=== PATIENT | female | born 1995 | race African-American/Black ===

== ENCOUNTER 2016-11-12 06:27 | Inpatient (IN) ==
[2016-11-12] MEDS ORDERED: MEPERIDINE 50 MG/1 ML VIAL IV PRN (06:52)
[2016-11-12] MEDS ORDERED: ONDANSETRON 4 MG/2 ML VIAL IV PRN (06:52)
[2016-11-12] MEDS ORDERED: OXYTOCIN/LR 20 UNIT/1,000 ML BAG IV SCH (07:00)
[2016-11-12 07:05] LABS: Basophils % 0.4 % (0.0-0.8); Eosinophils # 0.1 10*3/uL (0.0-0.87); Eosinophils % 1.8 % (0.00-10.9); Hematocrit 29.1 VOL% (35.7-47.0); Hemoglobin 9.8 GM/DL (12.0-16.0); Immature Granulocytes % 0.8 %; Immature Granulocytes Absolute 0.06 #; Lymphocytes # 1.5 10*3/uL (1.4-4.0); Lymphocytes % 21.4 % (21.3-54.2); Mean Corpuscular HGB Conc 33.7 GM/DL (32-36); Mean Corpuscular Hemoglobin 29 PG (27-34); Mean Corpuscular Volume 84.6 FL (87-102); Mean Platelet Volume 11.3 FL (9.6-12.0); Monocytes # 0.8 10*3/uL (0.11-0.8); Monocytes % 10.8 % (1.7-12.7); Neutrophils # 4.6 10*3/uL (1.4-7.4); Neutrophils % 64.8 % (38.7-73.9); Platelet Count 140 T/CUMM (130-400); Red Blood Count 3.44 MC/CUMM (3.8-5.5); Red Cell Distribution Width 13.7 % (9.3-17.3); White Blood Count 7.1 T/CUMM (4-12)
[2016-11-12] MEDS: LACTATED RINGERS 1,000 ML IV SCH ×2 (07:25→14:59)
[2016-11-12] MEDS ORDERED: ONDANSETRON 4 MG/2 ML VIAL IV ONE (08:34)
[2016-11-12] MEDS ORDERED: diphenhydrAMINE 50 MG/1 ML VIAL IV PRN ×2 (08:34)
[2016-11-12] MEDS ORDERED: fentaNYL 2 MCG/ROPIV 0.2% EPID 150 ML EPIDURAL SCH (08:34)
[2016-11-12] MEDS ORDERED: ePHEDrine 50 MG/ML AMP IV PRN (08:34)
[2016-11-12] MEDS ORDERED: FAMOTIDINE 20 MG/2 ML VIAL IV ONE (08:34)
[2016-11-12] MEDS ORDERED: PROMETHAZINE 25 MG/1 ML VIAL IM ONE (08:34)
[2016-11-12] MEDS ORDERED: hydrOXYzine HCL 25 MG/1 ML VIAL IM PRN (08:34)
[2016-11-12] MEDS ORDERED: LACTATED RINGERS 1,000 ML IV ONE (08:34)
[2016-11-12] MEDS ORDERED: CITRIC ACID/SODIUM CITRATE 30 ML UDCUP PO ONE (08:34)
[2016-11-12 12:25] LABS: Apearance,Urine CLEAR (Clear); Bilirubin,Urine Negative (Negative); Blood, Urine Negative (Negative); Glucose,Urine (UA) Negative (Negative); Ketones,Urine 5 mg/dL (Negative); Mucus,Urine Many /LPF (Occasional); Nitrite,Urine Negative (Negative); Protein,Urine Negative; RBC,Urine 2 /HPF (0-4); Squamous Epithelial Cell,Urine Occasional /HPF (0-10); Urine Color Yellow (Yellow); Urine Specific Gravity 1.016 (1.001-1.035); WBC,Urine 2 /HPF (0-6)
--- NOTE | 2016-11-12 15:25 | OB/GYN History & Physical ---
History of Present Illness Chief complaint: In for elective induction of labor due to term . History of present illness: Ms. Calix is a 21 year old female primigravida who presents to the labor department for elective induction of labor due to term . Her YUNIEL is for an estimated gestational age of 39 weeks. The patient presents for elective induction of labor due to term . The risk and benefits been thoroughly discussed with this patient and significant other, plan of care has been discussed with Dr. Benson and all parties are in agreement with plan. The patient received her care through the [facility] and she received routine care, her course was uneventful. labs: She is O+, antibody screen negative, RPR nonreactive, hepatitis B negative, HIV negative, rubella is immune, and GBS culture is negative. Review of systems is negative with exception of above. Home Medications Medication Instructions Recorded Confirmed Type No Known Home Medications [No 09/19/16 11/12/16 History Known Home Medications] Allergies Allergy/AdvReac Type Severity Reaction Status Date / Time No Known Allergies Allergy Verified 09/19/16 21:18 12 point system: reviewed and no additional remarkable complaints except as stated Medical,Surgical,& Family Hx - Medical History Medical History: noncontributory Reproductive: No history of: Ectopic , Complication - Surgical History Reproductive Surgeries: Patient denies;: Section Additional Surgical History: Keloid removal - Family History Family History: Reports;: Family Diabetes (MGF), Family Hypertension (MOM) Denies;: Family Anesthesia Reaction, Family Cancer, Family Heart Disease, Family Hematology, Family Psychiatric Problems, Family Stroke, Additional Family History - Social History Smoking Status: Never smoker Frequency of Alcohol Use: None Type of Drug Use: None Marital Status: Single Lives With:: Significant Other Functional capacity: independent ambulation 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 - Constitutional Vitals: Vital Signs Temp Pulse Resp BP Pulse Ox 11/12/16 13:14 97.3 F L 11/12/16 11:19 97.9 F 11/12/16 08:00 97.6 F 11/12/16 06:51 97.8 F 89 20 123/77 100 General appearance: no acute distress - Antepartum / Post Antepartum Exam Cervix - Dilatation: 4 cm Effacement: 70% Station: -2 Rupture: Intact Presentation: Vertex Heart Rate: 140s Breast: bilateral: normal Abdomen obstetrics: Present: bowel sounds normal Vagina: Present: normal moisture Uterus exam: Present: enlarged - Respiratory Respiratory exam: Present: clear to auscultation bilaterally - Cardiovascular Cardiovascular exam: Present: regular rate and rhythm - GI/Abdominal GI/Abdominal exam: Present: normal bowel sounds, soft - Extremities Exam Extremities exam: Present: normal inspection - Back Exam Back exam: Present: normal inspection - Neurological Exam Neurological exam: Present: alert, oriented X3 - Psychiatric Psychiatric exam: Present: normal affect, normal mood - Skin Skin exam: Present: normal color, warm Assessment and Plan (1) Term Status: Acute Assessment and plan: Admit IV fluids IV Pitocin per protocol Artificial rupture membranes when appropriate Epidural anesthesia if desired Internal monitors if indicated Anticipate Current Visit: Yes Results - Labs CBC & BMP: 11/12/16 06:57
--- NOTE | 2016-11-12 16:41 | Event Note ---
HPI: Ms. Calix is a 21-year-old primigravida who presented to the labor department for elective induction of labor due to term . The risk and benefits were thoroughly discussed with the patient and significant other, and plan of care was discussed with Dr. Benson all parties were in agreement plan. Stage I: The patient was admitted she received IV fluids and IV Pitocin per protocol. Artificial rupture membranes was performed with clear fluid noted. The patient received an epidural when she was 5 cm dilated. She progressed in labor with a CAT 1 tracing. The patient had an uneventful course of labor. Stage II: The patient was complete and instructed to push. She pushed for approximately 35 minutes after which time a second-degree midline episiotomy was performed. The patient pushed approximately 5 more minutes after which time the infant's head was delivered. The mouth and nose were suctioned on the perineum, the remainder the was delivered at 1618 a viable female infant was noted. Apgars were 9 at 1 minute and 9 at 5 minutes. weight was 7 pounds and 8 ounces. A cord pH was obtained and sent to the lab. The was then placed on the mom's abdomen for skin to skin bonding. Stage III: A spontaneous delivery of a Funez placenta with a three-vessel cord noted. The placenta was further examined. Grossly intact. Vagina cervix inspected with no tears or lacerations noted. The episiotomy was repaired in the usual fashion, epidural anesthesia remain in effect on repair. Estimated blood loss was approximately 150 cc. At the time of dictation mother and baby are both in stable condition.
[2016-11-12] MEDS ORDERED: ACETAMINOPHEN/CODEINE 300-30 MG TABLET PO PRN (16:42)
[2016-11-12] MEDS ORDERED: OXYTOCIN/LR 20 UNIT/1,000 ML BAG IV ONE (18:52)
--- NOTE | 2016-11-12 19:36 | Anesthesia Post-Op ---
Anesthesia Post OP - Post Ansesthetic Evaluation Patient seen in post op: Yes Resp: within normal limits CV: within normal limits Mental: within normal limits Temp: within normal limits [id number]: within normal limits Nausea and Vomiting: within normal limits Pain: within normal limits
[2016-11-12 20:20] LABS: Hematocrit 25.1 VOL% (35.7-47.0); Hemoglobin 8.4 GM/DL (12.0-16.0)
[2016-11-12] MEDS ORDERED: SODIUM CHLORIDE 0.9% 250 ML IV PRN (20:31)
[2016-11-12] MEDS ORDERED: LANOLIN 50% CREAM 0.3 OZ TUBE TOP PRN (20:42)
[2016-11-12] MEDS ORDERED: HYDROCORTISONE 2.5% RECTAL CREAM 30 GM TUBE TOP PRN (20:42)
[2016-11-12] MEDS ORDERED: ACETAMINOPHEN 325 MG TABLET PO PRN (20:42)
[2016-11-12] MEDS ORDERED: BENZOCAINE 20%/MENTHOL 0.5% SPRAY 56 GM CAN TOP PRN (20:42)
[2016-11-12] MEDS ORDERED: BISACODYL 10 MG SUPP RECTAL PRN (20:42)
[2016-11-12] MEDS ORDERED: oxyCODONE/ACETAMINOPHEN 5-325 MG TABLET PO PRN (20:42)
[2016-11-12] MEDS ORDERED: RHO(D) IMMUNE GLOBULIN 300 MCG SYRINGE IM ONE (20:42)
[2016-11-12] MEDS ORDERED: DIPH/TET/ACEL PERT BOOSTER VACCINE 0.5 ML VIAL IM ONE (20:42)
[2016-11-12] MEDS ORDERED: WITCH HAZEL PADS 100/JAR TOP PRN (20:42)
[2016-11-12] MEDS ORDERED: MEASLES/MUMPS/RUBELLA VACCINE 0.5 ML VIAL SUBCUT ONE (20:42)
--- NOTE | 2016-11-12 20:49 | Progress Note ---
Family Medicine PN Sub Interval history: day #1 Status post vaginal Lungs are clear, cardiac exam benign Abdomen soft, uterus is nice and firm Extremities well with no limits neurologic grossly intact Status post vaginal Continue with present therapy possible discharge in [id number] Exam (Progress Note) - Constitutional Vitals: Period Temp Pulse Resp BP Sys/Gongora Pulse Ox Last 24 Hr 97.1 F-98 F 89-90 18-20 106-123/69-77 100 Results - Labs CBC & BMP: 11/12/16 20:16 Quality Measures - VTE Contraindication to Pharmacological VTE Prophylaxis: Clinical assessment deems Pt at low risk, no prophalaxis needed
[2016-11-12] MEDS: DOCUSATE SODIUM 100 MG CAPSULE PO SCH (21:05)
[2016-11-12] MEDS: IBUPROFEN 800 MG TABLET PO PRN (21:05)
[2016-11-13 06:59] LABS: Basophils % 0.2 % (0.0-0.8); Eosinophils % 0.3 % (0.00-10.9); Hematocrit 27.8 VOL% (35.7-47.0); Hemoglobin 9.4 GM/DL (12.0-16.0); Immature Granulocytes % 0.8 %; Immature Granulocytes Absolute 0.13 #; Lymphocytes # 1.9 10*3/uL (1.4-4.0); Lymphocytes % 12.7 % (21.3-54.2); Mean Corpuscular HGB Conc 33.8 GM/DL (32-36); Mean Corpuscular Hemoglobin 28 PG (27-34); Mean Corpuscular Volume 81.3 FL (87-102); Mean Platelet Volume 12.4 FL (9.6-12.0); Monocytes # 1.9 10*3/uL (0.11-0.8); Monocytes % 12.2 % (1.7-12.7); NRBC # 0.02 10*3/uL; Neutrophils # 11.3 10*3/uL (1.4-7.4); Neutrophils % 73.8 % (38.7-73.9); Platelet Count 124 T/CUMM (130-400); Red Blood Count 3.42 MC/CUMM (3.8-5.5); Red Cell Distribution Width 14.9 % (9.3-17.3); White Blood Count 15.3 T/CUMM (4-12)
[2016-11-13 07:22] LABS: Band Neutrophils 1 % (0-10); Hypochromasia Slight; Lymphocytes 12 % (20-55); Ovalocytes Slight; Platelet Estimate Normal; Segmented Neutrophils 80 % (50-85); Total Cells Counted 100
[2016-11-13] MEDS: DOCUSATE SODIUM 100 MG CAPSULE PO SCH ×2 (08:27→21:01)
[2016-11-13] MEDS: FERROUS SULFATE 325 MG TABLET PO SCH ×2 (08:27→21:01)
--- NOTE | 2016-11-13 09:15 | OB/GYN Progress Note ---
Assessment and Plan (1) Term Status: Acute Assessment and plan: Admit IV fluids IV Pitocin per protocol Artificial rupture membranes when appropriate Epidural anesthesia if desired Internal monitors if indicated Anticipate Current Visit: Yes (2) Vaginal delivery Status: Acute Assessment and plan: Initiate routine orders. 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 Bonding well with . Exam LEAD CASTER - Constitutional Vitals: Vital Signs Temp Pulse Pulse Resp BP BP Pulse Ox 11/13/16 07:18 99.4 F 74 18 117/70 100 11/13/16 04:15 97.6 F 95 H 17 114/67 11/13/16 04:00 97.6 F 95 H 17 114/67 97 11/13/16 02:30 97.8 F 93 H 18 117/76 11/13/16 01:30 97.9 F 84 18 121/64 11/13/16 01:00 98.1 F 88 18 128/70 11/13/16 00:55 98.1 F 88 18 127/76 11/13/16 00:50 98.3 F 93 H 18 122/72 11/13/16 00:45 98.3 F 88 18 123/74 11/12/16 23:57 98.6 F 83 18 117/71 98 11/12/16 22:35 98.9 F 88 18 123/71 11/12/16 22:05 98.9 F 96 H 18 118/68 11/12/16 22:00 99.1 F 94 H 18 122/70 11/12/16 21:55 99.1 F 93 H 19 125/65 11/12/16 21:50 99.3 F 96 H 18 122/72 11/12/16 20:00 98 F 90 18 106/69 11/12/16 15:25 97.1 F L 11/12/16 13:14 97.3 F L 11/12/16 11:19 97.9 F General appearance: no acute distress - Antepartum / Post Antepartum Exam Breast: bilateral: normal Abdomen obstetrics: Present: bowel sounds normal Vagina: Present: normal moisture, discharge (Light lochia rubra) Uterus exam: Present: enlarged (Fundus firm and midline) Anus/Rectum: Present: normal perianal skin - Head Head exam: Present: normal inspection - Respiratory Respiratory exam: Present: clear to auscultation bilaterally - Cardiovascular Cardiovascular exam: Present: regular rate and rhythm - GI/Abdominal GI/Abdominal exam: Present: normal bowel sounds, soft - Extremities Exam Extremities exam: Present: normal inspection - Neurological Exam Neurological exam: Present: alert, oriented X3 - Psychiatric Psychiatric exam: Present: normal affect, normal mood - Skin Skin exam: Present: normal color, warm Results - Labs CBC & BMP: 11/13/16 06:26
[2016-11-13] MEDS: oxyCODONE/ACETAMINOPHEN 5-325 MG TABLET PO PRN (16:55)
[2016-11-13] MEDS: IBUPROFEN 800 MG TABLET PO PRN (16:55)
[2016-11-14 07:19] VITALS: BP 120/69
[2016-11-14] MEDS: DOCUSATE SODIUM 100 MG CAPSULE PO SCH (08:47)
[2016-11-14] MEDS: IBUPROFEN 800 MG TABLET PO PRN (08:47)
[2016-11-14] MEDS: FERROUS SULFATE 325 MG TABLET PO SCH (08:47)
[2016-11-14] MEDS: oxyCODONE/ACETAMINOPHEN 5-325 MG TABLET PO PRN (08:47)
--- NOTE | 2016-11-14 08:58 | Discharge Summary ---
Hospital Course - Hospital Course Hospital Course: Ms. Calix presented for elective induction of labor due to term . She subsequently delivered a viable with no complications. She has followed a normal post course and she has done well. Her bleeding is minimal with no odor. Her vital signs and lab values are stable. Her perineum is intact with no edema. She is voiding without difficulty. She did experience an episode of dizziness and shortness of breath immediately and received 2 units of packed RBCs. She has done well since. She is bonding well with her infant. And will be discharged to home with prescriptions for pain and follow-up appointment in our office. Diagnosis - Discharge Diagnosis (1) Term Status: Acute (2) Vaginal delivery Status: Acute Specialty Discharge - Follow Up or Referrals Follow up with: Kiko Benson MD [Primary Care Provider] - (Follow-up in 6 weeks) Discharge Plan - Discharge Data Disposition: Disch To Home/Self Care Condition at Discharge: Stable Discharge Diet: advance to your usual diet, regular diet Activity: resume usual activities as tolerated Hygiene: no restrictions Weight Bearing at Discharge: weight bear as tolerated Driving: no restrictions Contact your physician if you experience:: fever over 101, pain uncontrolled by pain medications - Discharge Medications New Acetamin/Codeine 300-30 Tab [Tylenol/Codeine #3] 2 tablet PO Q4H PRN #30 tablet PRN Reason: Pain Mild (1-3) Ferrous Sulfate Tab [Feosol Original Tab] 325 mg PO BID #60 tablet Ibuprofen Tab [Motrin Tab] 800 mg PO Q8H PRN #30 tablet PRN Reason: Pain Moderate (4-7) No Action No Known Home Medications [No Known Home Medications] - Follow Up or Referral Follow Up: Kiko Benson MD [Primary Care Provider] - - Forms/Instructions Instructions: Depression (GEN), Perineal Care (DC), Vaginal Delivery (DC), Bleeding (DC) Exam - Constitutional Vitals: Period Temp Pulse Resp BP Sys/Gongora Pulse Ox Last 24 Hr 97.8 F-98.3 F 72-96 17-20 110-128/62-77 98-100 General appearance: no acute distress - Head Head exam: Present: normal inspection - Respiratory Respiratory exam: Present: clear to auscultation bilaterally - Cardiovascular Cardiovascular exam: Present: regular rate and rhythm - GI/Abdominal GI/Abdominal exam: Present: normal bowel sounds, soft - Extremities Exam Extremities exam: Present: normal inspection - Neurological Exam Neurological exam: Present: alert, oriented X3 - Psychiatric Psychiatric exam: Present: normal affect, normal mood - Skin Skin exam: Present: normal color, warm DS: Provider Date of admission: 11/12/16 06:52 Primary care physician: Kiko Benson MD Attending physician on admission: Kiko Benson MD Consults: 11/12/16 06:52 Consult to Anesthesiology [CONS] Routine Consulting Provider: Reason for Anesthesiology: Epidural Consult Comment: Epidural for pain managment 11/12/16 20:42 Consult to Senior Corporate Accountant [CONS] Routine Consult Senior Corporate Accountant: Breast Feeding Discharging clinician: Kimmy Calix CNM
== END 2016-11-14 12:15 | disposition home or self-care (01) | DRG 560 ==
LOC: N.LDOUT 06:27 → N.LD 06:30 → N.OB 20:40
PROVIDERS: ADMIT Obstetrics & Gynecology; ATTEND Obstetrics & Gynecology

== ENCOUNTER 2018-03-29 23:58 | Inpatient (IN) ==
[2018-03-30] MEDS ORDERED: MEPERIDINE 50 MG/1 ML VIAL IV PRN (00:12)
[2018-03-30] MEDS ORDERED: ONDANSETRON 4 MG/2 ML VIAL IV PRN (00:12)
[2018-03-30 00:47] LABS: Basophils % 0.3 % (0.0-0.8); Eosinophils # 0.1 10*3/uL (0.0-0.87); Eosinophils % 1.3 % (0.00-10.9); Hematocrit 27.4 VOL% (35.7-47.0); Hemoglobin 8.8 GM/DL (12.0-16.0); Immature Granulocytes % 0.8 %; Immature Granulocytes Absolute 0.07 #; Lymphocytes # 2.1 10*3/uL (1.4-4.0); Lymphocytes % 22.8 % (21.3-54.2); Mean Corpuscular HGB Conc 32.1 GM/DL (32-36); Mean Corpuscular Hemoglobin 25 PG (27-34); Mean Corpuscular Volume 78.7 FL (87-102); Mean Platelet Volume 12.1 FL (9.6-12.0); Monocytes # 0.9 10*3/uL (0.11-0.8); Monocytes % 10.2 % (1.7-12.7); NRBC # 0.03 10*3/uL; Neutrophils # 5.8 10*3/uL (1.4-7.4); Neutrophils % 64.6 % (38.7-73.9); Platelet Count 159 T/CUMM (130-400); Red Blood Count 3.48 MC/CUMM (3.8-5.5); Red Cell Distribution Width 14.7 % (9.3-17.3)
[2018-03-30] MEDS: AMPICILLIN INJ 2,000 MG in SODIUM CHLORIDE 0.9% 100 ML IV SCH ×2 (01:00→07:26)
[2018-03-30 01:17] LABS: Albumin 2.9 G/DL (3.4-5.0); Bilirubin,Total 0.8 MG/DL (0.2-1.0); Calcium 8.8 MG/DL (8.5-10.1); Osmolality,Calculated 270.8 MOS/KG (273-304); Potassium 3.9 MMOL/L (3.5-5.1)
[2018-03-30] MEDS ORDERED: CITRIC ACID/SODIUM CITRATE 30 ML UDCUP PO ONE (04:29)
[2018-03-30] MEDS ORDERED: OXYTOCIN/LR 30 UNIT/1,000 ML BAG IV ONE (04:30)
[2018-03-30] MEDS ORDERED: FAMOTIDINE 20 MG/2 ML VIAL IV ONE (04:30)
[2018-03-30] MEDS ORDERED: fentaNYL 2 MCG/ROPIV 0.2% EPID 100 ML EPIDURAL SCH (04:30)
[2018-03-30] MEDS ORDERED: ePHEDrine 50 MG/ML AMP ONE (04:36)
[2018-03-30] MEDS: LACTATED RINGERS 1,000 ML IV SCH ×2 (04:40→05:37)
[2018-03-30] MEDS ORDERED: TERBUTALINE 1 MG/1 ML VIAL SUBCUT ONE (04:42)
[2018-03-30 06:02] LABS: Apearance,Urine Slightly Hazy (Clear); Bacteria,Urine Occasional /HPF (Few); Bilirubin,Urine Negative (Negative); Blood, Urine Negative (Negative); Glucose,Urine (UA) Negative (Negative); Ketones,Urine 5 mg/dL (Negative); Mucus,Urine Many /LPF (Occasional); Nitrite,Urine Negative (Negative); Protein,Urine 30 MG/DL; RBC,Urine 7 /HPF (0-4); Renal Epithelial Cells,Urine Occasional /HPF (<1); Urine Color Amber (Yellow); Urine Specific Gravity 1.034 (1.001-1.035); WBC,Urine 1 /HPF (0-6)
[2018-03-30] MEDS ORDERED: OXYTOCIN/LR 20 UNIT/1,000 ML BAG IV SCH (08:00)
[2018-03-30] MEDS ORDERED: LIDOCAINE 1% 50 ML VIAL ONE (08:50)
[2018-03-30] MEDS ORDERED: ACETAMINOPHEN 325 MG TABLET PO PRN (11:12)
[2018-03-30] MEDS ORDERED: BISACODYL 10 MG SUPP RECTAL PRN (11:12)
[2018-03-30] MEDS ORDERED: oxyCODONE/ACETAMINOPHEN 5-325 MG TABLET PO PRN ×2 (11:12)
[2018-03-30] MEDS ORDERED: BENZOCAINE 20%/MENTHOL 0.5% SPRAY 56 GM CAN TOP PRN (11:12)
[2018-03-30] MEDS ORDERED: HYDROCORTISONE 2.5% RECTAL CREAM 30 GM TUBE TOP PRN (11:12)
[2018-03-30] MEDS ORDERED: ACETAMINOPHEN/CODEINE 300-30 MG TABLET PO PRN (11:12)
[2018-03-30] MEDS ORDERED: RHO(D) IMMUNE GLOBULIN 300 MCG SYRINGE IM ONE (11:12)
[2018-03-30] MEDS ORDERED: WITCH HAZEL PADS 100/JAR TOP PRN (11:12)
[2018-03-30] MEDS ORDERED: LANOLIN 50% CREAM 0.3 OZ TUBE TOP PRN (11:12)
[2018-03-30] MEDS ORDERED: DIPH/TET/ACEL PERT BOOSTER VACCINE 0.5 ML VIAL IM ONE (11:30)
[2018-03-30] MEDS ORDERED: MEASLES/MUMPS/RUBELLA VACCINE 0.5 ML VIAL SUBCUT ONE (11:30)
[2018-03-30] MEDS: IBUPROFEN 800 MG TABLET PO PRN ×2 (13:39→23:55)
[2018-03-30 13:46] LABS: HIV Antigen/Antibody Result Nonreactive (Nonreactive); Hepatitis B Surface Ag Quant 0.63 Index; Hepatitis B Surface Ag Result Negative (Negative)
[2018-03-30] MEDS: DOCUSATE SODIUM 100 MG CAPSULE PO SCH (23:55)
[2018-03-31 06:05] LABS: Basophils % 0.3 % (0.0-0.8); Eosinophils # 0.1 10*3/uL (0.0-0.87); Eosinophils % 1.1 % (0.00-10.9); Hematocrit 20.6 VOL% (35.7-47.0); Immature Granulocytes % 0.9 %; Lymphocytes # 2.3 10*3/uL (1.4-4.0); Lymphocytes % 19.7 % (21.3-54.2); Mean Corpuscular HGB Conc 31.6 GM/DL (32-36); Mean Corpuscular Hemoglobin 25 PG (27-34); Mean Corpuscular Volume 80.2 FL (87-102); Mean Platelet Volume 12.2 FL (9.6-12.0); Monocytes % 8.8 % (1.7-12.7); NRBC # 0.03 10*3/uL; Neutrophils # 8.1 10*3/uL (1.4-7.4); Neutrophils % 69.2 % (38.7-73.9); Red Cell Distribution Width 14.5 % (9.3-17.3); White Blood Count 11.6 T/CUMM (4-12)
[2018-03-31 06:06] LABS: Hemoglobin 6.5 GM/DL (12.0-16.0); Platelet Count 126 T/CUMM (130-400); Red Blood Count 2.57 MC/CUMM (3.8-5.5)
[2018-03-31] MEDS: DOCUSATE SODIUM 100 MG CAPSULE PO SCH ×2 (08:12→19:24)
[2018-03-31] MEDS: FERROUS SULFATE 325 MG TABLET PO SCH ×2 (08:13→15:03)
[2018-03-31] MEDS ORDERED: SODIUM CHLORIDE 0.9% 1,000 ML IV PRN (09:20)
[2018-03-31 15:12] LABS: Hematocrit 25.7 VOL% (35.7-47.0); Hemoglobin 8.1 GM/DL (12.0-16.0)
[2018-03-31] MEDS: IBUPROFEN 800 MG TABLET PO PRN (19:24)
[2018-04-01] MEDS: DOCUSATE SODIUM 100 MG CAPSULE PO SCH ×2 (00:51→08:27)
[2018-04-01 05:56] LABS: Hematocrit 24.8 VOL% (35.7-47.0); Hemoglobin 8.1 GM/DL (12.0-16.0)
[2018-04-01 07:06] VITALS: BP 110/66
[2018-04-01] MEDS: FERROUS SULFATE 325 MG TABLET PO SCH (08:27)
[2018-04-01 09:56] LABS: Hematocrit 26.3 VOL% (35.7-47.0); Hemoglobin 8.5 GM/DL (12.0-16.0)
== END 2018-04-01 11:35 | disposition home or self-care (01) | DRG 560 ==
LOC: N.LDOUT 23:58 → N.LD 03-30 00:01 → N.OB 03-30 11:11
PROVIDERS: ADMIT Obstetrics & Gynecology; ATTEND Obstetrics & Gynecology